=== PATIENT | male | born 1980 | race African-American/Black ===

== ENCOUNTER 2024-12-06 11:55 | Emergency (ER) | payer OTHER ==
[~2024-12-06] VITALS: Ht 188 cm; Wt 82.0 kg
[2024-12-06 12:07] VITALS: O2SAT 100
[2024-12-06] MEDS ORDERED: PROP1DRO2 MT (12:33)
[2024-12-06 12:50] VITALS: BP 134/69; PULSE 70; RESP 16; TEMP 36.4; O2SAT 100
== END 2024-12-06 12:54 | disposition home or self-care (01) ==
LOC: ER 11:55
DX: H57.11 Ocular pain, right eye (principal)
CPT/HCPCS: 99282